=== PATIENT | male | born 1950 | race Caucasian/White ===

== ENCOUNTER 2017-07-24 11:16 | Emergency (ER) | payer OTHER ==
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
[2017-07-24 11:35] VITALS: TEMP 97.9
[2017-07-24 11:38] LABS: PLATELET COUNT 201 10^3/uL (150-400)
[2017-07-24] MEDS ORDERED: TDAP ADULT 0.5 ML INJ (BOOSTRIX) IM ONE (12:19)
[2017-07-24 15:07] VITALS: BP 145/103; PULSE 94; RESP 20; O2SAT 93
== END 2017-07-24 15:27 | disposition home or self-care (01) ==
LOC: EDUNIT#
DX: S06.0X0A Concussion without loss of consciousness, initial encounter (principal); Z23 Encounter for immunization; V67.5XXA Driver of heavy transport vehicle injured in collision with fixed or stationary object in traffic accident, initial encounter; Y92.410 Unspecified street and highway as the place of occurrence of the external cause; Y99.8 Other external cause status
CPT/HCPCS: G0390

== ENCOUNTER → 2017-08-05 | Outpatient (CLI) | payer OTHER | LOC: BMCIMAGING 10:10 | PROVIDERS: ATTEND Emergency Medicine | DX: M54.5 Low back pain (principal); M48.07 Spinal stenosis, lumbosacral region ==